=== PATIENT | male | born 1950 | race Caucasian/White ===

== ENCOUNTER 2017-08-13 06:10 | Observation (INO) | payer OTHER ==
--- NOTE | 2017-08-12 01:05 | HP ---
CC: Dr. Lamb * DATE OF PLANNED ADMISSION AND SURGERY: 08/13/17 HISTORY OF PRESENT ILLNESS: Mr. Uribe is a 66-year-old white male who is admitted with bladder outlet obstruction and prostate enlargement for transurethral resection of the prostate. I had been following Mr. Uribe because of increasing obstructive voiding symptoms having slow stream, hesitancy, intermittency, and feeling of incomplete bladder emptying. Work-up showed an elevated postvoid residual of 160 cc. Cystoscopy showed a large obstructing prostate and moderate diffuse bladder trabeculations. He was started on tamsulosin with only minimal improvement in his symptoms. He has been on finasteride for the last 6 months with also minimal improvement. He had urodynamic studies, which showed a high voiding detrusor pressure of 60 cm of water. Because of the above history and findings and the lack of response to medical treatment, the patient is admitted for transurethral resection of the prostate. 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 He was managed by surveillance only and did not require any additional treatment. He has done very well with no recurrent disease and his testicular markers have always been normal. The patient is otherwise in excellent health. His only other medication is omeprazole for GERD. He denies any cardiac or pulmonary diseases or symptoms. ALLERGIES: He denies any allergies to medications. He however has intolerance to CODEINE and had developed a reaction to IV CONTRAST. His PSA in October 2016 was 2.2. FAMILY HISTORY: Negative for prostate carcinoma. PHYSICAL EXAMINATION GENERAL: Pleasant, healthy, and fit-looking white male. VITAL SIGNS: Blood pressure 114/70, pulse of 74. LUNGS: Clear. HEART: Regular and rhythmic, no murmurs. ABDOMEN: Soft, no masses, no tenderness, and no CVA tenderness. : External genitalia, there is surgical absence of the left testis. The right testis feels normal. He has no inguinal hernias. Rectal exam shows a moderately enlarged but nonsuspicious prostate. IMPRESSION: Symptomatic bladder outlet obstruction and prostate enlargement, not responding to medical treatment. PLAN: Plan is for transurethral resection of the prostate. I discussed the operation in detail with the patient. Some of the potential complications including hematuria, infection, small incidence of incontinence, and of postoperative urethral strictures. All his questions were answered. [id number]/[facility] #: [id number] [facility]ITAL[facility]
[~2017-08-13 06:10] MED LIST: Buffered Lidocaine 0.9% SYRIN* 5 ML/SYR SYRINGE INTRADERM ONE
[2017-08-13] MEDS ORDERED: cefTRIAXone(*) 2 GM ADDV.VIAL IVPB ONE (06:28)
[2017-08-13] MEDS ORDERED: Buffered Lidocaine 0.9% SYRIN* 5 ML/SYR SYRINGE ONE (06:29)
[2017-08-13] MEDS ORDERED: Midazolam* 1 MG/ML 5 ML VIAL (5 MG) ONE (07:37)
[2017-08-13] MEDS ORDERED: Ondansetron INJ* 2 MG/ML VIAL IV PRN (07:55)
[2017-08-13] MEDS ORDERED: Midazolam* 1 MG/ML 2 ML VIAL (2 MG) ONE (08:32)
[2017-08-13] MEDS ORDERED: oxyCODONE/Acetamin 5/325 MG* TAB ONE (09:37)
[2017-08-13] MEDS ORDERED: fentaNYL* 50 MCG/ML 2 ML VIAL (100 MCG VIAL) ONE (09:37)
[2017-08-13] MEDS: fentaNYL* 50 MCG/ML 2 ML VIAL (100 MCG VIAL) IV PRN ×2 (09:42→10:08)
[2017-08-13] MEDS ORDERED: oxyCODONE/Acetamin 5/325 MG* TAB PO PRN (11:03)
[2017-08-13] MEDS ORDERED: Lidocaine 2% JELLY* 6 ML JELLY TOPICAL PRN (11:06)
[2017-08-13] MEDS: Oxybutynin TAB* 5 MG PO PRN ×3 (11:28→23:46)
--- NOTE | 2017-08-13 11:46 | OP ---
CC: Dr. Lamb OPERATIVE REPORT: DATE OF OPERATION: 08/13/17 DATE OF : 54 SURGEON: Evesn Dominguez MD ANESTHESIOLOGIST: Ty Kelly DO ANESTHESIA: Spinal. PRE-OP DIAGNOSES: 1. Benign prostatic hyperplasia. 2. Bladder outlet obstruction due to above. POST-OP DIAGNOSES: 1. Benign prostatic hyperplasia. 2. Bladder outlet obstruction due to above. OPERATIVE PROCEDURE: 1. Cystoscopy. 2. Transurethral resection of the prostate. INDICATION FOR PROCEDURE: Mr. Uribe is a 66-year-old white male who had a long history of bladder outlet obstruction and who has been maintained on tamsulosin and finasteride. He continued to be significantly symptomatic. No history of urinary retention or urinary tract infections. Office cystoscopy showed a large obstructing prostate. Urodynamic studies showed high voiding detrusor pressure and low flow consistent with bladder outlet obstruction. Because of the above history and findings and failure of response to the medical treatment, TURP was advised and accepted. Pathology: at cystoscopy, the penile and bulbar urethrae looked normal. The prostatic urethra measured about 3 cm in length and there was significant obstruction by trilobar hyperplasia of the prostate. Examination of the bladder showed normal ureteral orifices. There was a moderate degree of diffuse bladder trabeculations. No suspicious bladder lesions seen. No calculi or diverticula were noted. The prostate adenoma was only slightly vascular. No other abnormalities were noted. DESCRIPTION OF PROCEDURE: After successful spinal anesthesia and intravenous sedation, the patient was placed in the lithotomy position and was prepped and draped for a cystoscopy. Cystoscopy was then performed. The findings in the prostatic urethra and in the bladder were noted. The resectoscope was then introduced inside the bladder. Mannitol-sorbitol solution was used for irrigation and the inflow and outflow were adjusted to avoid overdistention of the bladder. The prominent median lobe and the protruding portions of the lateral lobes inside the bladder neck were circumferentially resected. The resectoscope was then positioned in the mid prostatic urethra and the adenoma was resected circumferentially. The resectoscope was then positioned at the level of the verumontanum. Resection of the adenoma was then carried between 5 o'clock and 8 o'clock. The left lobe was resected next starting at 5 o'clock and proceeding anteriorly. The right lobe was then resected. The anterior tissue and the apical tissue were resected last. The bleeders were electrocoagulated and controlled. At the completion of the resection, the external sphincter and the verumontanum were intact. There was no residual obstructing prostate tissue and the prostate fossa was wide open. There was one deep cut in the capsule at 11 o' clock just distal to the bladder neck, but was minimal bleeding from it. There was no undermining of the trigone. The ureteral orifices and the bladder looked intact. The bladder was then irrigated and all the prostate chips were removed. After a final inspection, which showed no residual prostate chips and good hemostasis , the resectoscope was removed and a size 22-[place] Land catheter was passed inside the bladder and the balloon inflated with 40 cc of water. The catheter was placed under gentle traction and taped to the right thigh of the patient. Irrigation yielded clear returns. The patient tolerated the procedure well and left the operating room in good condition. The blood loss was estimated at 50 cc or less. The specimen was prostate chips. [id number]/[facility] #: [id number] [facility]ENTERKitty
[2017-08-13] MEDS ORDERED: FIBER PO SCH (18:00)
[2017-08-13] MEDS ORDERED: Diazepam TAB(*) 5 MG PO PRN (20:33)
[2017-08-13] MEDS ORDERED: Diazepam TAB(*) 5 MG ONE (20:37)
[2017-08-14] MEDS: Oxybutynin TAB* 5 MG PO PRN (03:30)
[2017-08-14] MEDS ORDERED: cefTRIAXone VIAL(*) 1,000 MG in NS 0.9% 50 ML* 50 ML IVPB ONE (07:00)
[2017-08-14 08:03] VITALS: BP 101/65
[2017-08-14] MEDS ORDERED: Omeprazole CAP* 20 MG PO SCH (09:00)
[2017-08-14] MEDS ORDERED: Ascorbic Acid TAB* 500 MG PO SCH (09:00)
--- NOTE | 2017-08-14 16:01 | DS ---
CC: Dr. Lamb DISCHARGE SUMMARY: DATE OF ADMISSION: 08/13/17 DATE OF DISCHARGE: 08/14/17 FINAL DIAGNOSES: 1. Benign prostatic hyperplasia. 2. Bladder outlet obstruction due to above. OPERATION: Transurethral resection of the prostate on 08/13/17. HISTORY: Mr. rUibe is a 66-year-old white male, who had long history of bladder outlet obstruction with a slow stream, hesitancy, incomplete bladder emptying. He did not improve on medical treatmen t with tamsulosin and finasteride. Workup with cystoscopy and urodynamic studies confirmed a large obstructing prostate and good detrus or function. His PSA was normal at 2.2. Because of the above history and finding and failure of medical treatment, TURP was advised and acce pted. PAST MEDICAL HISTORY AND SYSTEM REVIEW: He had history of testicular cancer, which was treated with a radical left orchiectomy in 1981. He did not receive any additional treatment besides the orchie ctomy. He has done very well and has had no recurrence of his disease. The patient is in excellent health. He has GERD, on treatment. He reports having some GI symptoms to codeine and he had developed reaction in the past to IV contra st. PHYSICAL EXAMINATION: Preoperative physical exam was normal. The prostate was enlarged, but nonsus picious. LABORATORY DATA: Preoperative lab work was all within normal. COURSE IN HOSPITAL: The patient was admitted the morning of his surgery. He underwent an uncomplic ated transurethral resection of the prostate under spinal anesthesia. He did very well postoperativ pernell except for occasional bladder spasms. He was kept overnight for observation and he did not have any gross hematuria or fever. He was discharged home the next morning with a Land catheter. The plan is to see the patient in [facility] office in 4 or 5 days for Land catheter removal. Instructions were given for followup care. [id number]/[facility] #: [id number]
--- NOTE | 2017-08-16 03:34 | DS ---
DISCHARGE SUMMARY: ADDENDUM: The pathology on the resected prostate tissue showed small foci of a Osiris 6 adenocarcinoma involving less than 5% of the sample tissue. 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 His preoperative PSA was 2.2. The management will be surveillance and performing a transrectal ultrasound and multiple prostate biopsies in about 3 to 4 months to check for possible clinically significant disease in the peripheral zone of the prostate. I will be discussing these findings with Mr. Uribe at his next visit to my office. [id number]/[facility] #: [id number] [facility]
== END 2017-08-14 10:50 | disposition home or self-care (01) ==
LOC: OR 06:10 → SSU 09:10
PROVIDERS: ADMIT Urology; ATTEND Urology
PROC: 0TJB8ZZ Inspection of Bladder, Via Natural or Artificial Opening Endoscopic (ICD-10-PCS; 2017-08-13)
PROC: 0VT08ZZ Resection of Prostate, Via Natural or Artificial Opening Endoscopic (ICD-10-PCS; principal; 2017-08-13 07:45)
DX: N40.1 Benign prostatic hyperplasia with lower urinary tract symptoms (principal); N13.8 Other obstructive and reflux uropathy; C61 Malignant neoplasm of prostate; Z85.47 Personal history of malignant neoplasm of testis; Z88.5 Allergy status to narcotic agent; Z91.041 Radiographic dye allergy status
CPT/HCPCS: 88305; A9270-GY; G0378; J0696; J2250; J3010